=== PATIENT | male | born 1945 | race Caucasian/White ===

== ENCOUNTER 2022-02-14 14:45 | Emergency (ER) | payer MEDICARE, BC ==
[~2022-02-14] VITALS: Ht 177.8 cm; Wt 81.6 kg
[2022-02-14 14:54] VITALS: BP 164/100
--- NOTE | 2022-02-14 15:45 | NUR ---
[employer] COUNSEL[employer] AT BEDSIDE FOR ULTRASOUND.
--- NOTE | 2022-02-14 16:53 | NUR ---
Patient discharged to home in stable condition. Written and verbal after care instructions given. Patient verbalizes understanding of instruction.
== END 2022-02-14 16:53 | disposition home or self-care (01) ==
LOC: ER 14:56
DX: M79.89 Other specified soft tissue disorders (principal); I10 Essential (primary) hypertension; Z85.22 Personal history of malignant neoplasm of nasal cavities, middle ear, and accessory sinuses
CPT/HCPCS: 93971-TC